=== PATIENT | male | born 1955 | race Caucasian/White ===

== ENCOUNTER 2018-08-05 07:15 | Day surgery (SDC) | payer BC ==
[~2018-08-05] VITALS: Ht 175.3 cm; Wt 95.7 kg
[~2018-08-05 07:15] MED LIST: ANDROGEL1.25 GM TD; BP MED; CENTRUM SILVER1 EAC4 PO; CYCL10; CYMBALTA; DIAZ5 PO; GABA300 PO; HYDACE5; HYDMOR4; KETO10 PO; LEVE500; LISI5 PO; METH10; METH40; NAPR500 PO; Naprosyn500 MG PO; Norco 10-325 T1 EACH PO; OXYC10ER; OXYC10TA19; OXYC10TA19 PO; PANT40 PO; PERCOCET; Prozac20 MG PO; TESTOSTERO200 MG/1 M IM; TRAZ50 PO; Valium5 MG PO; ZESTORETIC 20-121 EA PO
--- NOTE | 2018-08-05 08:58 | NUR ---
08/05/18 0858 Nany Collazo HYDROGEN PEROXIDE USED TO IDENTIFY TRACTS.
--- NOTE | 2018-08-05 10:16 | NUR ---
08/05/18 1015 Alondra Powers PT INTO RECLINER AT 1007, STEADY DURING TRANSFER, AT CHAIRSIDE. PT REPORTS 7/10 PAIN, GAVE 25MCG IV FENTANYL. PT TOLERATING PO NOURISHMENT WELL AND DENIES NAUSEA AT THIS TIME. CALL LIGHT IN REACH. WILL CONT TO MONITOR
== END 2018-08-05 11:40 | disposition home or self-care (01) ==
LOC: ORSCSDS 07:15
PROVIDERS: Surgery
PROC: 0WJ Anatomical Regions, General, Inspection (ICD-10-PCS; principal; 2018-08-05 08:15)
DX: K61.1 Rectal abscess (principal); I10 Essential (primary) hypertension; Z87.891 Personal history of nicotine dependence; Z79.899 Other long term (current) drug therapy
CPT/HCPCS: J1885; J2250; J3010; J7120

== ENCOUNTER 2018-12-01 00:13 | Observation (INO) | payer BC ==
[~2018-12-01] VITALS: Ht 175.3 cm; Wt 95.2 kg
[2018-12-01 00:37] LABS: BASOPHILS ABSOLUTE AUTO 0.09 K/mm3 (0.00-0.23); BASOPHILS PERCENT AUTO 1 % (0-2); EOSINOPHILS ABSOLUTE AUTO 0.22 K/mm3 (0.00-0.68); EOSINOPHILS PERCENT AUTO 1 % (0-6); Hemoglobin 15.1 g/dL (13.5-17.5); IMMATURE GRAN ABSOLUTE AUTO 0.11 K/mm3 (0.00-0.10); IMMATURE GRAN PERCENT AUTO 1 % (0-1); LYMPHOCYTES ABSOLUTE AUTO 1.88 K/mm3 (0.84-5.20); LYMPHOCYTES PERCENT AUTO 10 % (21-46); MONOCYTES ABSOLUTE AUTO 1.43 K/mm3 (0.16-1.47); MONOCYTES PERCENT AUTO 7 % (4-13); Mean Corpuscular HGB 30.8 pg (26.0-34.0); Mean Corpuscular HGB Conc 32.8 g/dL (31.5-36.5); Mean Corpuscular Volume 94 fL (80-100); Mean Platelet Volume 11.3 fL (9.1-12.4); NEUTROPHILS ABSOLUTE AUTO 15.67 K/mm3 (1.96-9.15); NEUTROPHILS PERCENT AUTO 81 % (41-73); Platelet Count 236 K/mm3 (150-400); RDW Coefficient Variation 13.4 % (11.7-14.2); RDW Standard Deviation 46.2 fL (35.1-46.3)
[2018-12-01 01:01] LABS: Alanine Aminotransfer (ALT/SGP 46 U/L (12-78); Albumin, Blood 3.8 g/dL (3.4-5.0); Albumin/Globulin Ratio 1.2 (0.8-1.8); Alk Phos 94 U/L (50-136); Anion Gap 8 mmol/L (6-16); Aspartate Aminotrans (AST/SGOT 38 U/L (12-37); Bilirubin, Total 0.4 mg/dL (0.1-1.0); Blood Urea Nitrogen 21 mg/dL (8-24); Bun/Creatinine Ratio 23.7 (12.0-20.0); CO2, Blood 30 mmol/L (21-32); Calcium, Blood 8.6 mg/dL (8.5-10.1); Chloride, Blood 101 mmol/L (98-108); Creatinine, Blood 0.89 mg/dL (0.60-1.20); Globulin, Blood 3.1 g/dL (2.2-4.0); Glomerular Filtration Rate >60 (60-); Glucose, Blood 107 mg/dL (70-99); Potassium, Blood 3.8 mmol/L (3.5-5.5); Sodium, Blood 139 mmol/L (136-145); Total Protein, Blood 6.9 g/dL (6.4-8.2); Troponin I <0.015 ng/mL (0.000-0.040)
[2018-12-01 01:39] LABS: Ethanol (Alcohol), Blood, Med <3 mg/dL
--- NOTE | 2018-12-01 06:29 | NUR ---
SHIFT SUMMARY PT NEW ED ADMIT. PT'S PAIN INTERMITTENTLY UNCONTROLLABLE. PT HAS HAD A LARGE AMOUNT OF NARCOTICS WHILE IN THE ED AND SINCE ADMISSION. SLEPT FOR APPROX 20 MINUTES TWO TIMES AND WAS UP COMPLAINING OF 9/10 PAIN OTHERWISE. PT REPORTS PAIN SHARP NECK PAIN THAT RADIATES DOWN HIS LEFT ARM AND INTO HIS CHEST WALL. PT HAS CHRONIC NECK PAIN BUT REPORTS THIS PAIN IS DIFFERENT. PT REQUESTED OXYGEN FOR COMFORT, O2 SATS GOOD ON RA. PLACED ON 2 L O2. TELEMETRY ON, READING SR IN THE 70'S. PT REFUSING TO TRY ANY HEAT OR COLD THERAPY. PT ALSO REFUSED SCD'S. HOWEVER, PT IS ALSO ON LOVENOX. AT BEDSIDE. PT GOING IN BETWEEN LYING DOWN AND PACING AROUND HIS ROOM AT THIS TIME. JUST MEDICATED W/ 10 MG ROXICODONE PER ORDERS. WILL REASSESS AND REPORT TO DAY RN.
--- NOTE | 2018-12-01 08:30 | NUR ---
PT A/O, IRRITABLE, SHORT. "I DONT WANT TO TALK" STATES PAIN 6, NECK, BACK AND L CHEST. WOULD LIKE TO BE AT 5. MED PER EMAR. H/R REG, NO MURMER NOTED. PER TELE: NSR AT 67. LUNGS CLEAR, RESP EASY, UNLABORED, ON R.A. OCC 2L O2 IF FEELS SOB. BT X4 LAST BM YEST. VOIDS BATHROOM. INDEPENDANT IN ROOM TO BATHROOM. BED IN LOW POSITOIIN, CALL LITE IN REACH, CALLS APPROP. COFFEE TAKEN TO AT BEDSIDE
--- NOTE | 2018-12-01 11:07 | NUR ---
PT STILL C/O PAIN. MED PER EMAR
--- NOTE | 2018-12-01 15:31 | NUR ---
pt back from mri
--- NOTE | 2018-12-01 16:07 | NUR ---
SPOKE TO PT, PAIN INCREASING. MED PER EMAR.
--- NOTE | 2018-12-01 18:05 | NUR ---
PT RELAXING MORE THIS TREVIN. STATES PAIN SOME BETTER. AT BEDSIDE. GAVE HER BLANKETS. NO OTHER CONCERNS AT THIS TIME. BED IN LOW POSITION, CALL LITE IN REACH, CALLS APROP.
--- NOTE | 2018-12-02 03:16 | NUR ---
SHIFT SUMMARY PATIENT HAD NO ACUTE CHANGES OBSERVED DURING THE SHIFT. AXO X4 AND INDEPENDENT IN THE ROOM. PIV REMAINS INTACT. LEAD DATA ENTRY OPERATOR REPORTS NSR 65. ON 2L O2 NC PRN. REPORTS NECK/RIGHT SHOULDER PAIN X2 AND RECEIVED OXYCODONE 10 MG PO PER EMAR. TAKES MEDICATION WHOLE WITH WATER. COOPERATIVE WITH CARE. CALL LIGHT IN REACH. BED IN LOWEST POSITION. WILL CONTINUE TO MONITOR UNTIL DAY SHIFT NURSE ASSUMES CARE.
[2018-12-02 06:47] LABS: BASOPHILS ABSOLUTE AUTO 0.04 K/mm3 (0.00-0.23); BASOPHILS PERCENT AUTO 0 % (0-2); EOSINOPHILS ABSOLUTE AUTO 0.23 K/mm3 (0.00-0.68); EOSINOPHILS PERCENT AUTO 2 % (0-6); Hematocrit 44.5 % (37.0-53.0); Hemoglobin 14.4 g/dL (13.5-17.5); IMMATURE GRAN ABSOLUTE AUTO 0.04 K/mm3 (0.00-0.10); IMMATURE GRAN PERCENT AUTO 0 % (0-1); LYMPHOCYTES ABSOLUTE AUTO 1.81 K/mm3 (0.84-5.20); LYMPHOCYTES PERCENT AUTO 19 % (21-46); MONOCYTES ABSOLUTE AUTO 1.05 K/mm3 (0.16-1.47); MONOCYTES PERCENT AUTO 11 % (4-13); Mean Corpuscular HGB 30.9 pg (26.0-34.0); Mean Corpuscular HGB Conc 32.4 g/dL (31.5-36.5); Mean Corpuscular Volume 96 fL (80-100); Mean Platelet Volume 11.5 fL (9.1-12.4); NEUTROPHILS ABSOLUTE AUTO 6.53 K/mm3 (1.96-9.15); NEUTROPHILS PERCENT AUTO 67 % (41-73); Platelet Count 222 K/mm3 (150-400); RDW Coefficient Variation 13.7 % (11.7-14.2); RDW Standard Deviation 48.2 fL (35.1-46.3); Red Blood Cell Count 4.66 M/mm3 (4.30-5.90)
[2018-12-02 07:01] LABS: Alanine Aminotransfer (ALT/SGP 32 U/L (12-78); Albumin, Blood 3.2 g/dL (3.4-5.0); Albumin/Globulin Ratio 1.1 (0.8-1.8); Alk Phos 73 U/L (50-136); Anion Gap 5 mmol/L (6-16); Aspartate Aminotrans (AST/SGOT 17 U/L (12-37); Bilirubin, Total 0.5 mg/dL (0.1-1.0); Blood Urea Nitrogen 18 mg/dL (8-24); Bun/Creatinine Ratio 27.1 (12.0-20.0); CO2, Blood 31 mmol/L (21-32); Calcium, Blood 8.5 mg/dL (8.5-10.1); Chloride, Blood 104 mmol/L (98-108); Creatinine, Blood 0.67 mg/dL (0.60-1.20); Glomerular Filtration Rate >60 (60-); Glucose, Blood 102 mg/dL (70-99); Magnesium, Blood 2.4 mg/dL (1.6-2.4); Phosphorus, Blood 3.3 mg/dL (2.5-4.9); Potassium, Blood 3.9 mmol/L (3.5-5.5); Sodium, Blood 140 mmol/L (136-145); Total Protein, Blood 6.2 g/dL (6.4-8.2)
[2018-12-02] MEDS ORDERED: COLCHICINE0.6 MG PO (09:48)
[2018-12-02] MEDS ORDERED: IBU800 MG PO (09:49)
--- NOTE | 2018-12-02 10:19 | NUR ---
PT HAD ALL PAPERS REVIEWED AND APPOINTMENTS TALKED ABOUT.IV REMOVED AND MEDICATIONS FAXED TO [facility]. AOX4 AND COOPERATIVE OF CARE. EDUCATIONAL MATERIALS SENT. PT REFUSED ESCORT TO EXIT.
== END 2018-12-02 10:27 | disposition home or self-care (01) ==
LOC: ER 00:13 → MEDS 00:14 → ENPENDDIS 12-02 08:58 → MEDS 12-02 10:27
PROVIDERS: Emergency Medicine; Hospitalist; ADMIT Hospitalist
DX: R07.9 Chest pain, unspecified (principal); M54.12 Radiculopathy, cervical region; M54.9 Dorsalgia, unspecified; G89.29 Other chronic pain; I10 Essential (primary) hypertension; I34.0 Nonrheumatic mitral (valve) insufficiency; I51.7 Cardiomegaly; E66.9 Obesity, unspecified; F32.9 Major depressive disorder, single episode, unspecified; F11.90 Opioid use, unspecified, uncomplicated; Z87.891 Personal history of nicotine dependence; Z88.1 Allergy status to other antibiotic agents; Z79.899 Other long term (current) drug therapy
CPT/HCPCS: 36415; 71260; 72141; 80053; 83690; 83735; 84100; 84484; 85025; 85651; 86140; 93005; 93010; 93306; 96374-59; 96375-59; 96376-59; 99285-25; G0480; J1170; J1630; J1650; J1885; J2060; J2405; J3010; Q9967

== ENCOUNTER 2019-02-21 08:57 | Day surgery (SDC) | payer BC ==
[~2019-02-21] VITALS: Ht 175.3 cm; Wt 89.9 kg
[~2019-02-21 08:57] MED LIST changes: +Baclofen10 MG PO; +COLCHICINE0.6 MG PO; +DULO60 PO; +Depo-Testos200 MG/ML; +IBU800 MG PO; +OXYC10ER PO
--- NOTE | 2019-02-21 09:19 | NUR ---
History, Chart, Medications and Allergies reviewed before start of procedure. Patient confirms NPO status and agrees with scheduled surgery. Lungs clear T/O to Auscultation. Patient States Post-Procedure ride home has been arranged. Pre-Op teaching done. Pt verbalizes understanding. Patient states colon prep results clear.
--- NOTE | 2019-02-21 10:20 | NUR ---
02/21/19 1020 Preethi Mccallum History, Chart, Medications and Allergies reviewed before start of procedure. MODERATE SEDATION DUE TO HX G[place]O. MONITOR INTACT WITH CONTINUOUS PULSE OXIMETRY AND INTERMITTENT BP.3-LEAD EKG REVIEWED WITH PHYSICIAN PRIOR TO START OF PROCEDURE.O2 VIA N/C INTACT THROUGHOUT SEDATION/PROCEDURE.
--- NOTE | 2019-02-21 11:30 | NUR ---
Discharge instructions reviewed with patient. Patient verbalizes understanding. Copy given to patient to take home. PT SIPS COFFEE, AT BEDSIDE. READY TO GET DRESSED.
--- NOTE | 2019-02-21 11:34 | NUR ---
Discharged via wheelchair to private car for ride home.
== END 2019-02-21 11:30 | disposition home or self-care (01) ==
LOC: ORSCMMR 08:57 → ORD 09:30 → ORSCMMR 09:30
PROVIDERS: Internal Medicine Gastroenterology
PROC: 0DBN8ZX Excision of Sigmoid Colon, Via Natural or Artificial Opening Endoscopic, Diagnostic (ICD-10-PCS; principal; 2019-02-21 09:30)
PROC: 0DBK8ZX Excision of Ascending Colon, Via Natural or Artificial Opening Endoscopic, Diagnostic (ICD-10-PCS; principal; 2019-02-21 09:30)
DX: Z12.11 Encounter for screening for malignant neoplasm of colon (principal); D12.2 Benign neoplasm of ascending colon; K63.5 Polyp of colon; K64.8 Other hemorrhoids; I10 Essential (primary) hypertension; F17.210 Nicotine dependence, cigarettes, uncomplicated; Z79.899 Other long term (current) drug therapy
CPT/HCPCS: 88305; J2250; J3010; J7120

== ENCOUNTER 2019-05-26 07:27 | Day surgery (SDC) | payer BC ==
[~2019-05-26] VITALS: Ht 175.3 cm; Wt 92.3 kg
[~2019-05-26 07:27] MED LIST changes: +CENTRUM SILVER1 EAC2 PO; +Depo-Testos200 MG/ML IM
--- NOTE | 2019-05-26 08:14 | NUR ---
05/26/19 0814 Liv Chapin PRP DRAWN AND ANTICOAG IS ADDED, DELIVERED TO OR AND SPUN.
== END 2019-05-26 12:46 | disposition home or self-care (01) ==
LOC: ORSCSDS 07:27
PROVIDERS: Orthopaedic Surgery
PROC: 0LS14ZZ Reposition Right Shoulder Tendon, Percutaneous Endoscopic Approach (ICD-10-PCS; principal; 2019-05-26 09:00)
PROC: 0RNJ4ZZ Release Right Shoulder Joint, Percutaneous Endoscopic Approach (ICD-10-PCS; principal; 2019-05-26 09:00)
PROC: 0RHJ44Z Insertion of Internal Fixation Device into Right Shoulder Joint, Percutaneous Endoscopic Approach (ICD-10-PCS; principal; 2019-05-26 09:00)
PROC: 0LQ14ZZ Repair Right Shoulder Tendon, Percutaneous Endoscopic Approach (ICD-10-PCS; principal; 2019-05-26 09:00)
PROC: 0RBJ4ZZ Excision of Right Shoulder Joint, Percutaneous Endoscopic Approach (ICD-10-PCS; principal; 2019-05-26 09:00)
DX: M19.011 Primary osteoarthritis, right shoulder (principal); M75.21 Bicipital tendinitis, right shoulder; M75.51 Bursitis of right shoulder; S46.011A Strain of muscle(s) and tendon(s) of the rotator cuff of right shoulder, initial encounter
CPT/HCPCS: C1713; J0171; J1100; J2250; J2370; J2405; J2704; J2795; J3010; J7120

== ENCOUNTER 2020-03-05 20:58 | Observation (INO) | payer MEDICARE, BC ==
[~2020-03-05] VITALS: Ht 175.3 cm; Wt 95.2 kg
[~2020-03-05 20:58] MED LIST changes: -Depo-Testos200 MG/ML IM
[2020-03-05 21:31] LABS: BASOPHILS ABSOLUTE AUTO 0.05 K/mm3 (0.00-0.23); BASOPHILS PERCENT AUTO 1 % (0-2); EOSINOPHILS ABSOLUTE AUTO 0.13 K/mm3 (0.00-0.68); EOSINOPHILS PERCENT AUTO 1 % (0-6); Hematocrit 47.9 % (37.0-53.0); Hemoglobin 16.3 g/dL (13.5-17.5); IMMATURE GRAN ABSOLUTE AUTO 0.05 K/mm3 (0.00-0.10); IMMATURE GRAN PERCENT AUTO 1 % (0-1); LYMPHOCYTES ABSOLUTE AUTO 1.57 K/mm3 (0.84-5.20); LYMPHOCYTES PERCENT AUTO 14 % (21-46); MONOCYTES ABSOLUTE AUTO 1.04 K/mm3 (0.16-1.47); MONOCYTES PERCENT AUTO 9 % (4-13); Mean Corpuscular HGB 31.3 pg (26.0-34.0); Mean Corpuscular Volume 92 fL (80-100); Mean Platelet Volume 10.6 fL (9.1-12.4); NEUTROPHILS ABSOLUTE AUTO 8.23 K/mm3 (1.96-9.15); NEUTROPHILS PERCENT AUTO 74 % (41-73); Platelet Count 303 K/mm3 (150-400); RDW Coefficient Variation 13.1 % (11.7-14.2); RDW Standard Deviation 44.5 fL (35.1-46.3); White Blood Cell Count 11.07 K/mm3 (4.00-11.30)
[2020-03-05 21:52] LABS: Alanine Aminotransfer (ALT/SGP 58 U/L (12-78); Albumin, Blood 3.2 g/dL (3.4-5.0); Albumin/Globulin Ratio 0.9 (0.8-1.8); Alk Phos 83 U/L (50-136); Anion Gap 4 mmol/L (6-16); Aspartate Aminotrans (AST/SGOT 40 U/L (12-37); Bilirubin, Total 0.3 mg/dL (0.1-1.0); Blood Urea Nitrogen 15 mg/dL (8-24); Bun/Creatinine Ratio 20.2 (12.0-20.0); CO2, Blood 30 mmol/L (21-32); Calcium, Blood 8.6 mg/dL (8.5-10.1); Chloride, Blood 103 mmol/L (98-108); Creatinine, Blood 0.74 mg/dL (0.60-1.20); Globulin, Blood 3.4 g/dL (2.2-4.0); Glomerular Filtration Rate >60 (60-); Glucose, Blood 106 mg/dL (70-99); Potassium, Blood 3.5 mmol/L (3.5-5.5); Sodium, Blood 137 mmol/L (136-145); Total Protein, Blood 6.6 g/dL (6.4-8.2); Troponin I <0.015 ng/mL (0.000-0.040)
[2020-03-05 22:39] LABS: Source, Urine Clean Catch
[2020-03-05 22:44] LABS: Appearance, Urine Clear (Clear); Bilirubin, Urine Neg (Neg); Blood, Urine 1+ (Neg); Color, Urine Yellow (P-Yellow); Glucose Qualitative, Urine Neg (Neg); Ketones, Urine Neg (Neg); Leukocyte Esterase, Urine 1+ (Neg); Nitrite, Urine Neg (Neg); Protein, Urine Neg (Neg); Specific Gravity, Urine 1.015 (1.003-1.022); Urobilinogen, Urine NORM (Normal)
[2020-03-05 22:53] LABS: Bacteria Mod /hpf; Mucus Light (0-Heavy); Squamous Epithelial Cells Rare /hpf (Few)
[2020-03-06] MEDS ORDERED: BACL10 PO (00:03)
[2020-03-06] MEDS ORDERED: DULOXETINE HCL60 M1 PO (00:03)
[2020-03-06] MEDS ORDERED: OXYC10TA19 PO (00:04)
[2020-03-06] MEDS ORDERED: EFUDEX40 GM (00:04)
[2020-03-06] MEDS ORDERED: TRAZ50 PO (00:04)
[2020-03-06] MEDS ORDERED: TAMSULOSIN HCL0.4 M1 PO (00:05)
[2020-03-06] MEDS ORDERED: LISINOPRIL-HCT1 EACH PO (00:05)
[2020-03-06] MEDS ORDERED: Depo-Testos200 MG/ML IM (00:06)
--- NOTE | 2020-03-06 04:13 | NUR ---
SHIFT SUMMARY NEW ADMIT THIS SHIFT. AAOX4. NPO. DISCOMFORT CONTROLLED WITH 1MG IV DILAUDID X1 SINCE ARRIVAL TO FLOOR. NO NAUSEA/EMESIS. UMBILICAL HERNIA NOTED. PT REPORTING PAIN X3 DAYS WITH INCREASED DISCOMFORT OVER THE LAST 24 HRS. BM YESTARDAY. PT RESTING WELL AT THIS TIME. ORIENTED TO ROOM + CALL LIGHT USE.
--- NOTE | 2020-03-06 08:10 | NUR ---
INTO SDS VIA GURNERY FROM SURG ROOM. History, Chart, Medications and Allergies reviewed before start of procedure.Patient confirms NPO status and agrees with scheduled surgery. Surgical site prepped with 2% Chlorhexidine cloth wipe. Lungs clear T/O to Auscultation.
--- NOTE | 2020-03-06 08:44 | NUR ---
PT VERY AGITATED AND PAINFUL. GAVE 50MCG FENTANYL IV WITH GOOD EFFECT.
--- NOTE | 2020-03-06 12:28 | NUR ---
POST OP: PATIENT CAME BACK ALERT AND ORIENTED FROM SURGERY. HE REPORTS NOT HAVING ANY PAIN AT THIS TIME. HE IS DRINKING ICED WATER AND JELLO CURRENTLY WITH NO NAUSEA OR VOMITING. HE SEEMS TO BE MORE PLEASENT NOW POST OP. HE IS RESTING COMFORTABLY IN BED. HE IS ON ROOM AIR. HE HAS GAZE AND TEGRADERM TAPE OVER THE SURGICAL SITE. IT IS C/D/I. CALL LIGHT IS WITHIN REACH. WILL CONTINUE TO MONITOR THROUGHOUT THE SHIFT.
[2020-03-06] MEDS ORDERED: CODACE30 PO (14:21)
--- NOTE | 2020-03-06 15:28 | NUR ---
DISCHARGE: PATIENT WAS INFORMED ON DISCHARGE INSTRUCTIONS. HE HAD NO QUESTIONS AFTER DISCUSSING INSTRUCTIONS. HE HAS BEEN ALERT AND ORIENTED X4 THROUGHOUT THE SHIFT. IV WAS REMOVED WITHIN NORMAL LIMITS. HE UNDERSTANDS TO CALL DR. NOWAK OR THE SURGICAL UNIT IF HE HAS QUESTIONS IN THE FUTURE. HE WILL BE AT HIS FOLLOW UP APPOINTMENT WITH DR. NOWAK IN TWO WEEKS. WILL BE TAKING HIM HOME.
[2020-03-09] MEDS ORDERED: DOXYCYCLINE HY200 M1 PO (11:02)
[2020-03-09] MEDS ORDERED: BISA5EC PO (11:02)
[2020-03-09] MEDS ORDERED: MAGCIT300 PO (11:02)
== END 2020-03-06 15:30 | disposition home or self-care (01) ==
LOC: ER 20:58 → SURS 20:59
PROVIDERS: Physician Assistant; ADMIT Surgery
PROC: 0WQF0ZZ Repair Abdominal Wall, Open Approach (ICD-10-PCS; principal; 2020-03-06 09:45)
DX: K42.0 Umbilical hernia with obstruction, without gangrene (principal); I10 Essential (primary) hypertension; Z88.1 Allergy status to other antibiotic agents; Z20.828 Contact with and (suspected) exposure to other viral communicable diseases; Z87.891 Personal history of nicotine dependence; Z79.899 Other long term (current) drug therapy
CPT/HCPCS: 36415; 74176; 80053; 81001; 83690; 84484; 85025; 87086; 93005; 93010; 96361; 96374; 96375; 96376; 99285-25; A9270; G0378; J1100; J1170; J1885; J2250; J2370; J2405; J2704; J2710; J3010; J7030; J7120; U0002

== ENCOUNTER → 2021-01-28 | Outpatient (CLI) | payer BC, MEDICARE ==
[~2021-01-28] MED LIST changes: +BACL10 PO; +BISA5EC PO; +CODACE30 PO; +DOXYCYCLINE HY200 M1 PO; +DULOXETINE HCL60 M1 PO; +Depo-Testos200 MG/ML IM; +EFUDEX40 GM; +LISINOPRIL-HCT1 EACH PO; +MAGCIT300 PO; +TAMSULOSIN HCL0.4 M1 PO
== END | disposition home or self-care (01) ==
LOC: LAB SHORT 14:17 → LAB 14:17
DX: D22.21 Melanocytic nevi of right ear and external auricular canal (principal); D48.5 Neoplasm of uncertain behavior of skin
CPT/HCPCS: 88305

== ENCOUNTER 2021-07-26 16:44 | Emergency (ER) | payer MEDICARE, BC ==
[~2021-07-26] VITALS: Ht 175.3 cm; Wt 95.2 kg
[2021-07-26 17:47] LABS: BASOPHILS ABSOLUTE AUTO 0.07 K/mm3 (0.00-0.23); BASOPHILS PERCENT AUTO 1 % (0-2); EOSINOPHILS PERCENT AUTO 1 % (0-6); Hematocrit 48.6 % (37.0-53.0); Hemoglobin 16.3 g/dL (13.5-17.5); IMMATURE GRAN ABSOLUTE AUTO 0.04 K/mm3 (0.00-0.10); IMMATURE GRAN PERCENT AUTO 0 % (0-1); LYMPHOCYTES ABSOLUTE AUTO 1.99 K/mm3 (0.84-5.20); LYMPHOCYTES PERCENT AUTO 15 % (21-46); MONOCYTES ABSOLUTE AUTO 1.06 K/mm3 (0.16-1.47); MONOCYTES PERCENT AUTO 8 % (4-13); Mean Corpuscular HGB 30.4 pg (26.0-34.0); Mean Corpuscular HGB Conc 33.5 g/dL (31.5-36.5); Mean Corpuscular Volume 91 fL (80-100); Mean Platelet Volume 11.1 fL (9.1-12.4); NEUTROPHILS ABSOLUTE AUTO 9.63 K/mm3 (1.96-9.15); NEUTROPHILS PERCENT AUTO 75 % (41-73); Platelet Count 310 K/mm3 (150-400); RDW Coefficient Variation 12.9 % (11.7-14.2); RDW Standard Deviation 43.4 fL (35.1-46.3); Red Blood Cell Count 5.37 M/mm3 (4.30-5.90); White Blood Cell Count 12.89 K/mm3 (4.00-11.30)
[2021-07-26 18:14] LABS: Troponin I <0.015 ng/mL (0.000-0.040)
[2021-07-26 18:20] LABS: Alanine Aminotransfer (ALT/SGP 41 U/L (12-78); Albumin, Blood 3.7 g/dL (3.4-5.0); Alk Phos 85 U/L (50-136); Anion Gap 5 mmol/L (6-16); Aspartate Aminotrans (AST/SGOT 28 U/L (12-37); Bilirubin, Total 0.4 mg/dL (0.1-1.0); Blood Urea Nitrogen 20 mg/dL (8-24); Bun/Creatinine Ratio 23.4 (12.0-20.0); CO2, Blood 29 mmol/L (21-32); Chloride, Blood 104 mmol/L (98-108); Creatinine, Blood 0.86 mg/dL (0.60-1.20); Globulin, Blood 3.8 g/dL (2.2-4.0); Glomerular Filtration Rate >60 (60-); Glucose, Blood 91 mg/dL (70-99); Potassium, Blood 4.2 mmol/L (3.5-5.5); Sodium, Blood 138 mmol/L (136-145); Total Protein, Blood 7.5 g/dL (6.4-8.2)
[2021-07-26 18:52] LABS: Influenza A, PCR Negative (NEGATIVE); Influenza B, PCR Negative (NEGATIVE); Resp Syncytial Virus, PCR Negative (NEGATIVE); SARS-Cov-2 (COVID-19) PCR, MMC Negative (NEGATIVE)
[2021-07-26] MEDS ORDERED: AMOCLA875 PO (21:25)
== END 2021-07-26 22:07 | disposition home or self-care (01) ==
LOC: ER 16:44
PROVIDERS: Physician Assistant
DX: R07.89 Other chest pain (principal); I10 Essential (primary) hypertension; Z87.891 Personal history of nicotine dependence; Z88.1 Allergy status to other antibiotic agents; Z79.899 Other long term (current) drug therapy
CPT/HCPCS: 0241U; 71046; 80053; 83880; 84484; 85025; 93005; 93010; 99285-25; A9270

== ENCOUNTER → 2021-08-13 | Outpatient (CLI) | payer MEDICARE, BC ==
[~2021-08-13] MED LIST changes: +AMOCLA875 PO
== END | disposition home or self-care (01) ==
LOC: LAB SHORT 19:18 → LAB 19:18
DX: L98.9 Disorder of the skin and subcutaneous tissue, unspecified (principal)
CPT/HCPCS: 87070; 87075; 87205

== ENCOUNTER → 2021-09-04 | Outpatient (CLI) | payer MEDICARE, BC | END | disposition home or self-care (01) | LOC: LAB SHORT 11:23 | DX: L98.499 Non-pressure chronic ulcer of skin of other sites with unspecified severity (principal); L90.5 Scar conditions and fibrosis of skin | CPT/HCPCS: 88305; 88312 ==

== ENCOUNTER 2021-10-29 20:38 | Emergency (ER) | payer MEDICARE, BC ==
[~2021-10-29] VITALS: Ht 175.3 cm; Wt 99.8 kg
[2021-10-29 20:55] LABS: BASOPHILS ABSOLUTE AUTO 0.08 K/mm3 (0.00-0.23); BASOPHILS PERCENT AUTO 1 % (0-2); EOSINOPHILS ABSOLUTE AUTO 0.16 K/mm3 (0.00-0.68); EOSINOPHILS PERCENT AUTO 1 % (0-6); Hematocrit 43.6 % (37.0-53.0); Hemoglobin 14.7 g/dL (13.5-17.5); IMMATURE GRAN ABSOLUTE AUTO 0.22 K/mm3 (0.00-0.10); IMMATURE GRAN PERCENT AUTO 1 % (0-1); LYMPHOCYTES ABSOLUTE AUTO 2.91 K/mm3 (0.84-5.20); LYMPHOCYTES PERCENT AUTO 17 % (21-46); MONOCYTES ABSOLUTE AUTO 1.39 K/mm3 (0.16-1.47); MONOCYTES PERCENT AUTO 8 % (4-13); Mean Corpuscular HGB 30.7 pg (26.0-34.0); Mean Corpuscular HGB Conc 33.7 g/dL (31.5-36.5); Mean Corpuscular Volume 91 fL (80-100); Mean Platelet Volume 10.9 fL (9.1-12.4); NEUTROPHILS ABSOLUTE AUTO 12.22 K/mm3 (1.96-9.15); NEUTROPHILS PERCENT AUTO 72 % (41-73); Platelet Count 295 K/mm3 (150-400); RDW Coefficient Variation 13.7 % (11.7-14.2); RDW Standard Deviation 46.5 fL (35.1-46.3); Red Blood Cell Count 4.79 M/mm3 (4.30-5.90); White Blood Cell Count 16.98 K/mm3 (4.00-11.30)
[2021-10-29 21:21] LABS: Albumin, Blood 3.6 g/dL (3.4-5.0); Albumin/Globulin Ratio 1.2 (0.8-1.8); Bilirubin, Total 0.7 mg/dL (0.1-1.0); Bun/Creatinine Ratio 11.2 (12.0-20.0); Calcium, Blood 8.6 mg/dL (8.5-10.1); Creatinine, Blood 1.34 mg/dL (0.60-1.20); Globulin, Blood 3.1 g/dL (2.2-4.0); Potassium, Blood 3.5 mmol/L (3.5-5.5); Total Protein, Blood 6.7 g/dL (6.4-8.2)
== END 2021-10-30 01:59 | disposition home or self-care (01) ==
LOC: ER 20:38
PROVIDERS: Emergency Medicine
DX: R55 Syncope and collapse (principal); S63.501A Unspecified sprain of right wrist, initial encounter; S00.81XA Abrasion of other part of head, initial encounter; I95.9 Hypotension, unspecified; N17.9 Acute kidney failure, unspecified; R07.89 Other chest pain; I10 Essential (primary) hypertension; R73.03 Prediabetes; Z79.899 Other long term (current) drug therapy; Z88.1 Allergy status to other antibiotic agents; Z87.891 Personal history of nicotine dependence; W07.XXXA Fall from chair, initial encounter
CPT/HCPCS: 70450; 71045; 73110; 80053; 84484; 85025; 93005; 93010; 96374; 99285-25; J1885; J7030

== ENCOUNTER → 2022-06-10 | Outpatient (CLI) | payer MEDICARE, BC ==
[2022-06-10 14:40] LABS: BASOPHILS PERCENT AUTO 1 % (0-2); EOSINOPHILS ABSOLUTE AUTO 0.15 K/mm3 (0.00-0.68); EOSINOPHILS PERCENT AUTO 1 % (0-6); Hematocrit 49.6 % (37.0-53.0); IMMATURE GRAN ABSOLUTE AUTO 0.06 K/mm3 (0.00-0.10); IMMATURE GRAN PERCENT AUTO 0 % (0-1); LYMPHOCYTES ABSOLUTE AUTO 2.06 K/mm3 (0.84-5.20); LYMPHOCYTES PERCENT AUTO 14 % (21-46); MONOCYTES ABSOLUTE AUTO 1.18 K/mm3 (0.16-1.47); MONOCYTES PERCENT AUTO 8 % (4-13); Mean Corpuscular HGB 30.2 pg (26.0-34.0); Mean Corpuscular HGB Conc 34.3 g/dL (31.5-36.5); Mean Corpuscular Volume 88 fL (80-100); Mean Platelet Volume 10.4 fL (9.1-12.4); NEUTROPHILS ABSOLUTE AUTO 11.34 K/mm3 (1.96-9.15); NEUTROPHILS PERCENT AUTO 76 % (41-73); Platelet Count 315 K/mm3 (150-400); RDW Coefficient Variation 13.3 % (11.7-14.2); RDW Standard Deviation 43.1 fL (35.1-46.3); Red Blood Cell Count 5.62 M/mm3 (4.30-5.90); White Blood Cell Count 14.89 K/mm3 (4.00-11.30)
[2022-06-10 14:51] LABS: Albumin, Blood 4.3 g/dL (3.4-5.0); Albumin/Globulin Ratio 1.3 (0.8-1.8); Bilirubin, Total 0.4 mg/dL (0.1-1.0); Bun/Creatinine Ratio 22.7 (12.0-20.0); Calcium, Blood 9.4 mg/dL (8.5-10.1); Creatinine, Blood 0.88 mg/dL (0.60-1.20); Globulin, Blood 3.4 g/dL (2.2-4.0); Potassium, Blood 3.7 mmol/L (3.5-5.5); Total Protein, Blood 7.7 g/dL (6.4-8.2)
== END | disposition home or self-care (01) ==
LOC: LAB SHORT 14:36 → LAB 14:36
PROVIDERS: Physician Assistant
DX: R07.9 Chest pain, unspecified (principal)
CPT/HCPCS: 80053; 84484; 85025

== ENCOUNTER → 2022-10-23 | Outpatient (CLI) | payer MEDICARE ==
[2022-10-23 14:14] LABS: BASOPHILS ABSOLUTE AUTO 0.08 K/mm3 (0.00-0.23); BASOPHILS PERCENT AUTO 1 % (0-2); EOSINOPHILS ABSOLUTE AUTO 0.12 K/mm3 (0.00-0.68); EOSINOPHILS PERCENT AUTO 1 % (0-6); Hematocrit 54.8 % (37.0-53.0); Hemoglobin 18.7 g/dL (13.5-17.5); IMMATURE GRAN ABSOLUTE AUTO 0.11 K/mm3 (0.00-0.10); IMMATURE GRAN PERCENT AUTO 1 % (0-1); LYMPHOCYTES ABSOLUTE AUTO 2.28 K/mm3 (0.84-5.20); LYMPHOCYTES PERCENT AUTO 15 % (21-46); MONOCYTES ABSOLUTE AUTO 1.35 K/mm3 (0.16-1.47); MONOCYTES PERCENT AUTO 9 % (4-13); Mean Corpuscular HGB 29.6 pg (26.0-34.0); Mean Corpuscular HGB Conc 34.1 g/dL (31.5-36.5); Mean Corpuscular Volume 87 fL (80-100); Mean Platelet Volume 10.8 fL (9.1-12.4); NEUTROPHILS PERCENT AUTO 74 % (41-73); Platelet Count 262 K/mm3 (150-400); RDW Standard Deviation 44.3 fL (35.1-46.3); Red Blood Cell Count 6.32 M/mm3 (4.30-5.90); White Blood Cell Count 15.04 K/mm3 (4.00-11.30)
[2022-10-23 14:25] LABS: Albumin, Blood 4.7 g/dL (3.4-5.0); Albumin/Globulin Ratio 1.3 (0.8-1.8); Bilirubin, Total 0.5 mg/dL (0.1-1.0); Calcium, Blood 9.8 mg/dL (8.5-10.1); Globulin, Blood 3.7 g/dL (2.2-4.0); Potassium, Blood 3.5 mmol/L (3.5-5.5); Total Protein, Blood 8.4 g/dL (6.4-8.2)
== END | disposition home or self-care (01) ==
LOC: LAB SHORT 14:06
PROVIDERS: Chiropractor
DX: R07.9 Chest pain, unspecified (principal)
CPT/HCPCS: 80053; 84484; 85025; 85379

== ENCOUNTER 2022-10-30 17:24 | Emergency (ER) | payer MEDICARE, BC ==
[~2022-10-30] VITALS: Ht 175.3 cm; Wt 99.8 kg
[2022-10-30 18:10] LABS: BASOPHILS ABSOLUTE AUTO 0.09 K/mm3 (0.00-0.23); BASOPHILS PERCENT AUTO 1 % (0-2); EOSINOPHILS ABSOLUTE AUTO 0.23 K/mm3 (0.00-0.68); EOSINOPHILS PERCENT AUTO 2 % (0-6); Hematocrit 47.4 % (37.0-53.0); Hemoglobin 16.3 g/dL (13.5-17.5); IMMATURE GRAN ABSOLUTE AUTO 0.05 K/mm3 (0.00-0.10); IMMATURE GRAN PERCENT AUTO 0 % (0-1); LYMPHOCYTES ABSOLUTE AUTO 2.39 K/mm3 (0.84-5.20); LYMPHOCYTES PERCENT AUTO 20 % (21-46); MONOCYTES PERCENT AUTO 9 % (4-13); Mean Corpuscular HGB 29.5 pg (26.0-34.0); Mean Corpuscular HGB Conc 34.4 g/dL (31.5-36.5); Mean Corpuscular Volume 86 fL (80-100); Mean Platelet Volume 10.8 fL (9.1-12.4); NEUTROPHILS ABSOLUTE AUTO 8.31 K/mm3 (1.96-9.15); NEUTROPHILS PERCENT AUTO 68 % (41-73); Platelet Count 254 K/mm3 (150-400); RDW Coefficient Variation 13.2 % (11.7-14.2); RDW Standard Deviation 41.2 fL (35.1-46.3); Red Blood Cell Count 5.52 M/mm3 (4.30-5.90); White Blood Cell Count 12.17 K/mm3 (4.00-11.30)
[2022-10-30 18:32] LABS: Albumin/Globulin Ratio 1.2 (0.8-1.8); Bilirubin, Total 0.2 mg/dL (0.1-1.0); Bun/Creatinine Ratio 21.2 (12.0-20.0); Calcium, Blood 8.8 mg/dL (8.5-10.1); Creatinine, Blood 0.76 mg/dL (0.60-1.20); Globulin, Blood 3.2 g/dL (2.2-4.0); Potassium, Blood 3.9 mmol/L (3.5-5.5); Total Protein, Blood 7.2 g/dL (6.4-8.2)
[2022-10-30 22:12] LABS: Influenza A, PCR NEGATIVE (NEGATIVE); Influenza B, PCR NEGATIVE (NEGATIVE); Resp Syncytial Virus, PCR NEGATIVE (NEGATIVE); SARS-Cov-2 (COVID-19) PCR, MMC NEGATIVE (NEGATIVE)
[2022-10-30 22:46] VITALS: BP 155/97
== END 2022-10-30 22:48 | disposition home or self-care (01) ==
LOC: ER 17:24
PROVIDERS: Emergency Medicine; Physician Assistant
DX: R42 Dizziness and giddiness (principal); R51.9 Headache, unspecified; Z88.1 Allergy status to other antibiotic agents; Z79.899 Other long term (current) drug therapy; I10 Essential (primary) hypertension; Z87.891 Personal history of nicotine dependence
CPT/HCPCS: 0241U; 36415; 70450; 71046; 80053; 83690; 84484; 85025; 93005; 93010; 96361; 96374; 96375; 99284-25; J1200; J1885; J2765; J7030

== ENCOUNTER → 2023-05-30 | Outpatient (CLI) | payer MEDICARE, BC ==
[2023-05-30 10:14] LABS: BASOPHILS ABSOLUTE AUTO 0.06 K/mm3 (0.00-0.23); BASOPHILS PERCENT AUTO 1 % (0-2); EOSINOPHILS ABSOLUTE AUTO 0.23 K/mm3 (0.00-0.68); EOSINOPHILS PERCENT AUTO 3 % (0-6); Hemoglobin 15.9 g/dL (13.5-17.5); IMMATURE GRAN ABSOLUTE AUTO 0.06 K/mm3 (0.00-0.10); IMMATURE GRAN PERCENT AUTO 1 % (0-1); LYMPHOCYTES ABSOLUTE AUTO 1.63 K/mm3 (0.84-5.20); LYMPHOCYTES PERCENT AUTO 18 % (21-46); MONOCYTES ABSOLUTE AUTO 0.93 K/mm3 (0.16-1.47); MONOCYTES PERCENT AUTO 10 % (4-13); Mean Corpuscular HGB 30.3 pg (26.0-34.0); Mean Corpuscular HGB Conc 33.1 g/dL (31.5-36.5); Mean Corpuscular Volume 91 fL (80-100); Mean Platelet Volume 10.1 fL (9.1-12.4); NEUTROPHILS ABSOLUTE AUTO 6.08 K/mm3 (1.96-9.15); NEUTROPHILS PERCENT AUTO 68 % (41-73); Platelet Count 255 K/mm3 (150-400); RDW Coefficient Variation 13.8 % (11.7-14.2); RDW Standard Deviation 46.5 fL (35.1-46.3); Red Blood Cell Count 5.25 M/mm3 (4.30-5.90); White Blood Cell Count 8.99 K/mm3 (4.00-11.30)
[2023-05-30 10:22] LABS: Bun/Creatinine Ratio 26.4 (12.0-20.0); Creatinine, Blood 0.91 mg/dL (0.60-1.20)
== END | disposition home or self-care (01) ==
LOC: LAB 10:11 → LAB SHORT 10:11
PROVIDERS: Emergency Medicine
DX: R07.9 Chest pain, unspecified (principal)
CPT/HCPCS: 80048; 84484; 85025

== ENCOUNTER → 2023-06-05 | Outpatient (CLI) | payer MEDICARE, BC | LOC: LAB 11:57 → LAB SHORT 11:57 | DX: J06.9 Acute upper respiratory infection, unspecified (principal) | CPT/HCPCS: 87807 ==

== ENCOUNTER → 2023-06-15 | Outpatient (CLI) | payer MEDICARE, BC | END | disposition home or self-care (01) | LOC: LAB SHORT 07:56 → LAB 07:56 | DX: M72.2 Plantar fascial fibromatosis (principal); M79.671 Pain in right foot; R26.2 Difficulty in walking, not elsewhere classified | CPT/HCPCS: 88304 ==

== ENCOUNTER 2025-02-28 21:24 | Inpatient (IN) | payer MEDICARE, BC ==
[~2025-02-28] VITALS: Ht 175.3 cm; Wt 92.4 kg
[~2025-02-28 21:24] MED LIST changes: +ATOR80 PO; +Aspir 8181 MG PO; +BACLOFEN10 M4 PO; +CLOP75 PO; +DEPO-TESTO200 MG/18 IM; +ISOSORBIDE MONO60 MG PO; +LISI10 PO; +METO25ER PO
[2025-02-28 21:40] LABS: BASOPHILS ABSOLUTE AUTO 0.06 K/mm3 (0.00-0.23); BASOPHILS PERCENT AUTO 1 % (0-2); EOSINOPHILS ABSOLUTE AUTO 0.39 K/mm3 (0.00-0.68); EOSINOPHILS PERCENT AUTO 4 % (0-6); Hematocrit 39.9 % (37.0-53.0); Hemoglobin 13.2 g/dL (13.5-17.5); IMMATURE GRAN ABSOLUTE AUTO 0.04 K/mm3 (0.00-0.10); IMMATURE GRAN PERCENT AUTO 0 % (0-1); LYMPHOCYTES ABSOLUTE AUTO 2.30 K/mm3 (0.84-5.20); LYMPHOCYTES PERCENT AUTO 23 % (21-46); MONOCYTES ABSOLUTE AUTO 1.11 K/mm3 (0.16-1.47); MONOCYTES PERCENT AUTO 11 % (4-13); Mean Corpuscular HGB Conc 33.1 g/dL (31.5-36.5); Mean Corpuscular Volume 94 fL (80-100); NEUTROPHILS ABSOLUTE AUTO 5.99 K/mm3 (1.96-9.15); NEUTROPHILS PERCENT AUTO 61 % (41-73); NRBC ABSOLUTE 0.00 K/mm3 (0.00-0.02); NRBC Auto 0.0 /100 WBC (0.0-0.2); Platelet Count 246 K/mm3 (150-400); RDW Coefficient Variation 13.5 % (11.7-14.2); RDW Standard Deviation 46.4 fL (35.1-46.3)
[2025-02-28 21:54] LABS: Prothrombin Time Results 10.4 Sec (9.7-11.5)
[2025-02-28 22:02] LABS: Alanine Aminotransfer (ALT/SGP 61.0 U/L (12-78); Albumin, Blood 3.5 g/dL (3.4-5.0); Albumin/Globulin Ratio 1.2 (0.8-1.8); Anion Gap 7.0 mmol/L (3-11); Aspartate Aminotrans (AST/SGOT 45.0 U/L (12-37); Bilirubin, Total 0.4 mg/dL (0.1-1.0); Blood Urea Nitrogen 24.0 mg/dL (8-24); CO2, Blood 30.0 mmol/L (21-32); Calcium, Blood 8.4 mg/dL (8.5-10.1); Chloride, Blood 100.0 mmol/L (98-108); Creatinine, Blood 0.94 mg/dL (0.60-1.20); Globulin, Blood 2.9 g/dL (2.2-4.0); Glucose, Blood 136.0 mg/dL (70-99); Potassium, Blood 4.3 mmol/L (3.5-5.5); Sodium, Blood 133.0 mmol/L (136-145); Total Protein, Blood 6.4 g/dL (6.4-8.2)
[2025-02-28] MEDS ORDERED: Nitroglycerin 1 INCH/GM PKT TOP ONE (22:20)
[2025-02-28] MEDS ORDERED: NS 1,000 ML IV SCH (22:35)
[2025-02-28 23:33] LABS: Anti-Xa UFH, PHA Monitoring <0.10 IU/mL
[2025-02-28] MEDS ORDERED: Heparin Sodium,Porcine/0.5 NS 500 ML IV SCH (23:55)
[2025-02-28] MEDS ORDERED: Heparin Sodium 5000 Units/ML 1ML MDV IV ONE (23:55)
[2025-03-01] VITALS (7 sets, daily range): BP systolic 100–149; BP diastolic 69–87
--- NOTE | 2025-03-01 06:29 | NUR ---
SHIFT SUMMARY PATIENT ARRIVED TO PCU 15 VIA STRETCHER. HE IS ALERT AND ORIENTED X4 AND STEADY ON HIS FEET. PATIENT DENIES HAVING CHEST PAIN, NITRO PASTE STILL IN PLACE. PATIENT ON ROOM AIR WITH SPO2 >90%. VITAL SIGNS STABLE. NO ACUTE ISSUES NOTED OVERNIGHT. WILL CONTINUE TO MONITOR. CALL LIGHT WITHIN REACH.
--- NOTE | 2025-03-01 07:53 | NUR ---
ASSUMPTION OF CARE: PATIENT IS ALERT AND ORIENTED X 4 ABLE TO MAKE NEEDS KNOWN, INFUSING HEPARIN Gtt, DENIES CHEST PAIN PRESSURE OR SOB AT REST. PATIENT HAD NITROPASTE REMOVED BY NIGHT RN THIS AM, MADE NPO UNTIL PROVIDERS ROUND. HAS BEE SR TO SB WITH BBB. VSS AFEBRILE.
[2025-03-01 08:05] LABS: Hematocrit 39.0 % (37.0-53.0); Hemoglobin 12.8 g/dL (13.5-17.5); Platelet Count 223 K/mm3 (150-400)
[2025-03-01] MEDS ORDERED: MASOPHEN325 M3 PO (08:56)
[2025-03-01] MEDS ORDERED: ACET500 PO (08:57)
[2025-03-01] MEDS ORDERED: BENADRYL25 MG PO ×2 (08:58)
[2025-03-01] MEDS ORDERED: EXCEDRINE PO (09:01)
[2025-03-01] MEDS ORDERED: NARCAN4 M1 (09:04)
[2025-03-01] MEDS ORDERED: Nitrostat0.3 MG SL (09:06)
[2025-03-01] MEDS ORDERED: C COMPLEX1000 M1 PO (09:07)
[2025-03-01] MEDS ORDERED: CENTRUM SILVER1 EAC2 PO (09:07)
[2025-03-01] MEDS ORDERED: SUPER BETA PROSTATE (09:15)
--- NOTE | 2025-03-01 18:20 | NUR ---
EOS: PATIENT TO BE NPO AFTER BREAKFAST, 1 EPIDSODE OF HEARTBURN, SELF RESOLVED, EKG PERFORMED AND COMPARABLE TO PREVIOUS. NO FURTHER CHEST PAIN NOTED OR ENDORSED. RESTING PORTION OF STRESS TEST DONE THIS EVENING, VSS HOME MED REC COMPLETE. EDUCATED AND PATIENT, PATIENT AGREEABLE TO PLAN. ECHO PREFORMED AND RESULTS IN. NO LONGER ON HEPARIN, PLAN OF CARE CONTINUES.
[2025-03-02 03:58] VITALS: BP 103/65
[2025-03-02 04:09] LABS: BASOPHILS ABSOLUTE AUTO 0.06 K/mm3 (0.00-0.23); BASOPHILS PERCENT AUTO 1 % (0-2); EOSINOPHILS ABSOLUTE AUTO 0.31 K/mm3 (0.00-0.68); EOSINOPHILS PERCENT AUTO 4 % (0-6); Hematocrit 40.9 % (37.0-53.0); Hemoglobin 13.5 g/dL (13.5-17.5); IMMATURE GRAN ABSOLUTE AUTO 0.03 K/mm3 (0.00-0.10); IMMATURE GRAN PERCENT AUTO 0 % (0-1); LYMPHOCYTES ABSOLUTE AUTO 2.26 K/mm3 (0.84-5.20); LYMPHOCYTES PERCENT AUTO 28 % (21-46); MONOCYTES ABSOLUTE AUTO 0.99 K/mm3 (0.16-1.47); MONOCYTES PERCENT AUTO 12 % (4-13); Mean Corpuscular HGB Conc 33.0 g/dL (31.5-36.5); Mean Corpuscular Volume 93 fL (80-100); NEUTROPHILS ABSOLUTE AUTO 4.52 K/mm3 (1.96-9.15); NEUTROPHILS PERCENT AUTO 55 % (41-73); NRBC ABSOLUTE 0.00 K/mm3 (0.00-0.02); NRBC Auto 0.0 /100 WBC (0.0-0.2); Platelet Count 241 K/mm3 (150-400); RDW Coefficient Variation 13.4 % (11.7-14.2); RDW Standard Deviation 45.9 fL (35.1-46.3)
[2025-03-02 04:32] LABS: Anion Gap 8.0 mmol/L (3-11); Blood Urea Nitrogen 22.0 mg/dL (8-24); CO2, Blood 28.0 mmol/L (21-32); Calcium, Blood 8.2 mg/dL (8.5-10.1); Chloride, Blood 105.0 mmol/L (98-108); Creatinine, Blood 0.75 mg/dL (0.60-1.20); Glucose, Blood 82.0 mg/dL (70-99); Potassium, Blood 3.8 mmol/L (3.5-5.5); Sodium, Blood 137.0 mmol/L (136-145)
--- NOTE | 2025-03-02 06:25 | NUR ---
SHIFT SUMMARY PATIENT ALERT AND ORIENTED X4. HAD NO COMPLAINTS OF CHEST PAIN OR SHORTNESS OF BREATH. ON ROOM AIR WITH SPO2 >90%. VITAL SIGNS STABLE. NO ACUTE ISSUES NOTED OVERNIGHT. WILL CONTINUE TO MONITOR. CALL LIGHT WITHIN REACH.
[2025-03-02 09:00] VITALS: BP 112/65
[2025-03-02] MEDS ORDERED: Multivitamins/Minerals 1 Tab PO SCH (09:00)
--- NOTE | 2025-03-02 10:45 | NUR ---
ASSUMPTION: NO ACUTE CHANGES FROM PREVIOUS SHIT, PATIENT HAS 2ND PORTION OF STRESS TEST, NPO EXCPET WATER PER NUC MED. HAD 1 X EPISODE OF HEARTBURN WHEN WAKING SELF RESOLVED, NO OTHER S/S OF ANGINA, HR STILL IN THE MID 40-70'S, NOT NEW SINCE HE HAS BEEN HERE, NO CAFFEINE NITRATES OR CHOCOLATE THROUGH THE NIGHT. PLAN OF CARE CONTINUES.
[2025-03-02 11:15] VITALS: BP 111/66
[2025-03-02 15:30] VITALS: BP 125/75
--- NOTE | 2025-03-02 17:26 | NUR ---
EOS: PATIENT HAD ABNORMAL STRESS TEST, NPO 0000 AND POTENTIAL CATH. AGREEABLE TO PLAN, NO NEED FOR HEPARIN Gtt PER COFFIN MAKER, HOSPITALIST AWARE. PATIENT REMAINS CHEST PAIN FREE FOR THIS RN. PATIENT ON RA SPO2>95%. BM YESTERDAY, URINATING WELL, DECLINES USING URINAL. EDUCATED, NO FURTHER ACUTE CONCERN FROM THIS RN PLAN OF CARE CONTINUES.
[2025-03-02 20:29] VITALS: BP 124/82
[2025-03-02 23:57] VITALS: BP 110/70
[2025-03-03] VITALS (10 sets, daily range): BP systolic 102–118; BP diastolic 67–82
[2025-03-03 03:55] LABS: BASOPHILS ABSOLUTE AUTO 0.06 K/mm3 (0.00-0.23); BASOPHILS PERCENT AUTO 1 % (0-2); EOSINOPHILS ABSOLUTE AUTO 0.26 K/mm3 (0.00-0.68); EOSINOPHILS PERCENT AUTO 3 % (0-6); Hematocrit 42.2 % (37.0-53.0); Hemoglobin 13.8 g/dL (13.5-17.5); IMMATURE GRAN ABSOLUTE AUTO 0.03 K/mm3 (0.00-0.10); IMMATURE GRAN PERCENT AUTO 0 % (0-1); LYMPHOCYTES ABSOLUTE AUTO 2.25 K/mm3 (0.84-5.20); LYMPHOCYTES PERCENT AUTO 27 % (21-46); MONOCYTES ABSOLUTE AUTO 1.01 K/mm3 (0.16-1.47); MONOCYTES PERCENT AUTO 12 % (4-13); Mean Corpuscular HGB Conc 32.7 g/dL (31.5-36.5); Mean Corpuscular Volume 93 fL (80-100); NEUTROPHILS ABSOLUTE AUTO 4.67 K/mm3 (1.96-9.15); NEUTROPHILS PERCENT AUTO 56 % (41-73); NRBC ABSOLUTE 0.00 K/mm3 (0.00-0.02); NRBC Auto 0.0 /100 WBC (0.0-0.2); Platelet Count 245 K/mm3 (150-400); RDW Coefficient Variation 13.4 % (11.7-14.2); RDW Standard Deviation 46.1 fL (35.1-46.3)
[2025-03-03 04:13] LABS: Anion Gap 7.0 mmol/L (3-11); Blood Urea Nitrogen 24.0 mg/dL (8-24); CO2, Blood 28.0 mmol/L (21-32); Calcium, Blood 8.5 mg/dL (8.5-10.1); Chloride, Blood 105.0 mmol/L (98-108); Creatinine, Blood 0.75 mg/dL (0.60-1.20); Glucose, Blood 112.0 mg/dL (70-99); Potassium, Blood 3.7 mmol/L (3.5-5.5); Sodium, Blood 136.0 mmol/L (136-145)
--- NOTE | 2025-03-03 06:02 | NUR ---
SHIFT SUMMARY: PT A&OX4 CALM AND COOPERATIVE. BP STABLE. SINUS UYEN 40-50S. PT DENIES CHEST PAIN/PRESSURE, LIGHT HEADEDNESS, DIZZINES, OR SOB. MAINTAINED >92% ON RA. KEPT NPO AFTER MIDNIGHT. INDEPENDENT IN ROOM. ENCOURAGED TO USE URINAL FOR OUTPUT MONITORING. PLAN IS FOR POSSIBLE ANGIOGRAM 03/03. NO OTHER SIGNIFICANT EVENTS OVERNIGHT. CALL LIGHT WITHIN REACH. BED IS LOW AND LOCKED. CONTINUE WITH CURRENT PLAN OF CARE.
--- NOTE | 2025-03-03 07:42 | NUR ---
KYLIE NOTE: THIS RN TO ASSUME CARE OF PATIENT. PATIENT AWAKE AND CHATTING WITH EXPENSE ANALYST REGARDING ANGIOGRAM THAT WILL HAPPEN THIS MORNING. PATIENT REPORTED 4/10 PAIN AND REQUESTING PAIN MEDICATIONS PRIOR TO GOING TO ANGIO. HAS CALL LIGHT WITHIN REACH, BED IN LOWEST POSITOIN & STATING NOTHING ELSE IS NEEDED AT THIS TIME.
[2025-03-03] MEDS ORDERED: NS 1,000 ML IV ONE ×2 (07:50→08:38)
[2025-03-03] MEDS ORDERED: Heparin Sodium 1000 Units/ML 10ML MDV ONE (07:50)
[2025-03-03] MEDS ORDERED: NS 250 ML IV ONE (07:50)
[2025-03-03] MEDS ORDERED: Nitroglycerin 2 MG/20 ML BTL ONE (07:51)
[2025-03-03] MEDS ORDERED: NiCARdipine HCL 1,000 MCG/5 ML SYR ONE (07:51)
--- NOTE | 2025-03-03 08:36 | NUR ---
[facility] PATIENT WAS TAKEN TO [facility] FOR ANGIOGRAM.
[2025-03-03] MEDS ORDERED: FentaNYL Citrate 50 MCG/ML 2 ML Injection ONE (08:38)
[2025-03-03] MEDS ORDERED: Midazolam HCl 1MG / ML 2ML Vial ONE (08:38)
[2025-03-03] MEDS ORDERED: NS 1,000 ML IV SCH (09:25)
--- NOTE | 2025-03-03 11:57 | NUR ---
MD ROUNDED: MD ROUNDED AND GAVE PATIENT THE NEWS HE WILL BE GOING HOME. MD TO PLACE ORDERS AND PATIENT TO CALL AND NOTIFY.
--- NOTE | 2025-03-03 14:05 | NUR ---
DISCHARGE: PATIENT IS ALERT AND ORIETNED X4 & COOPERATIVE WITH HIS CARE. TELE WAS TAKEN OFF ALONG WITH IV REMOVED. PATIENT AT BEDSIDE WAS HIS RIDE. WENT OVER DICAHRGE PACKET, PATIENT AWARE TO FOLLOW UP WITH PRIMARY ON SCHEDULED APPOINTMENT AND WAS NOTIFIED THAT CARDIOLOGY OFFICE WILL CONTACT HIM FOR FOLLOW UP APPOINTMENT. PATIENT AWARE OF WHAT MEDICATIONS WERE STOPPED, NO NEW MEDCIATIONS WERE ADDED AT THIS TIME.
[2025-03-07] MEDS ORDERED: Testosterone Cypionate 200 MG / ML Vial IM SCH (09:00)
== END 2025-03-03 13:43 | disposition home or self-care (01) | DRG 287 ==
LOC: ER 21:24 → PCU 21:25 → ERHOLD 21:25 → PCU 03-01 02:00
PROVIDERS: Emergency Medicine; Family Medicine; Student in an Organized Health Care Education/Training Program; ADMIT Internal Medicine
PROC: B2111ZZ Fluoroscopy of Multiple Coronary Arteries using Low Osmolar Contrast (ICD-10-PCS; principal; 2025-03-03)
DX: R07.89 Other chest pain (principal); E87.1 Hypo-osmolality and hyponatremia; I45.2 Bifascicular block; I25.10 Atherosclerotic heart disease of native coronary artery without angina pectoris; R00.1 Bradycardia, unspecified; G89.29 Other chronic pain; M54.2 Cervicalgia; R73.03 Prediabetes; I10 Essential (primary) hypertension; E78.5 Hyperlipidemia, unspecified; D64.9 Anemia, unspecified; Z88.1 Allergy status to other antibiotic agents; Z79.82 Long term (current) use of aspirin; Z79.02 Long term (current) use of antithrombotics/antiplatelets; Z98.1 Arthrodesis status; I25.2 Old myocardial infarction; Z87.891 Personal history of nicotine dependence; Z79.891 Long term (current) use of opiate analgesic
CPT/HCPCS: 36415; 71046; 76937; 78452; 80048; 80053; 82947; 83690; 84484; 85014; 85018; 85025; 85049; 85520; 85610; 85730; 93005; 93010; 93017; 93454; 94762; 96365; 96366; 99152; 99285-25; A9270; A9500; C1769; C1894; C8929; G0378; J0706; J1644; J2250; J2785; J3010; J7030; J7050; Q9957; Q9967

== ENCOUNTER 2025-05-31 08:48 | Day surgery (SDC) | payer MEDICARE, BC ==
[2025-05-31] VITALS (18 sets, daily range): BP systolic 87–146; BP diastolic 59–122
[~2025-05-31] VITALS: Ht 175.3 cm; Wt 92.5 kg
[~2025-05-31 08:48] MED LIST changes: +ACET500 PO; +ATOR80; +BENADRYL25 MG PO; +C COMPLEX1000 M1 PO; +EXCEDRINE PO; +MASOPHEN325 M3 PO; +NARCAN4 M1; +Nitrostat0.3 MG SL; +SUPER BETA PROSTATE; +ZESTORETIC 20-1 EAC1 PO
--- NOTE | 2025-05-31 09:18 | NUR ---
Ambulatory in Day Surgery History, Chart, Medications and Allergies reviewed before start of procedure.Pre-Op teaching done. Pt verbalizes understanding. Patient States Post-Procedure ride home has been arranged.
[2025-05-31] MEDS ORDERED: Glycopyrrolate 0.2 MG/ML 5ML VIAL ONE (10:02)
--- NOTE | 2025-05-31 10:06 | NUR ---
05/31/25 1006 Marco Arceo MONITOR INTACT WITH CONTINUOUS PULSE OXIMETRY, CONTINUOUS END TITAL CO2, 3-LEAD EKG AND INTERMITTENT BLOOD PRESSURE.O2 VIA POM INTACT THROUGHOUT SEDATION/PROCEDURE. ANESTHESIA PER DR. REGAN
--- NOTE | 2025-05-31 10:48 | NUR ---
Discharge instructions reviewed with patient. Patient verbalizes understanding. Copy given to patient to take home. Discharged via wheelchair to private car for ride home. Patient States Post-Procedure ride home has been arranged.
== END 2025-05-31 11:43 | disposition home or self-care (01) ==
LOC: ORSCMMR 08:48 → ORD 09:45 → ORSCMMR 11:43
PROVIDERS: Internal Medicine Gastroenterology
PROC: 0DBL8ZX Excision of Transverse Colon, Via Natural or Artificial Opening Endoscopic, Diagnostic (ICD-10-PCS; principal; 2025-05-31 09:45)
PROC: 0DBM8ZX Excision of Descending Colon, Via Natural or Artificial Opening Endoscopic, Diagnostic (ICD-10-PCS; principal; 2025-05-31 09:45)
DX: Z12.11 Encounter for screening for malignant neoplasm of colon (principal); D12.3 Benign neoplasm of transverse colon; D12.4 Benign neoplasm of descending colon; K64.8 Other hemorrhoids; Z86.0101 Personal history of adenomatous and serrated colon polyps; I25.2 Old myocardial infarction; I10 Essential (primary) hypertension; E78.00 Pure hypercholesterolemia, unspecified; I25.10 Atherosclerotic heart disease of native coronary artery without angina pectoris; G47.33 Obstructive sleep apnea (adult) (pediatric); E11.9 Type 2 diabetes mellitus without complications; E66.9 Obesity, unspecified; Z68.30 Body mass index [BMI] 30.0-30.9, adult; Z79.02 Long term (current) use of antithrombotics/antiplatelets; Z79.82 Long term (current) use of aspirin; Z79.899 Other long term (current) drug therapy
CPT/HCPCS: 88305; J2704; J7120